=== PATIENT | female | born 1975 | race African-American/Black ===

== ENCOUNTER 2017-01-04 01:08 | Inpatient (IN) | payer MEDICAID ==
[2017-01-04] MEDS ORDERED: ASPIRIN 81 MG TABLET, CHEWABLE PO ONE (01:23)
[2017-01-04 01:50] LABS: ABSOLUTE BASOPHILS # (AUTO) 0.2 10^3/uL (0.0-0.2); ABSOLUTE EOSINOPHILS # (AUTO) 0.1 10^3/uL (0.0-0.6); ABSOLUTE LYMPHOCYTES (AUTO) 1.3 10^3/uL (0.5-4.7); ABSOLUTE MONOCYTES (AUTO) 1.3 10^3/uL (0.1-1.4); BASOPHILS % (AUTO) 1.3 % (0-2); EOSINOPHILS % (AUTO) 1.1 % (0-6); HEMATOCRIT 36.8 % (36.0-47.0); HGB HCT DIFFERENCE -0.8; MEAN CORPUSCULAR HGB CONC 32.7 g/dL (32.0-36.0); MEAN CORPUSCULAR VOLUME 83 fl (80-97); MONOCYTES % (AUTO) 9.9 % (3-13); RED BLOOD COUNT 4.46 10^6/uL (3.72-5.28); RED CELL DISTRIBUTION WIDTH 15.2 % (11.5-14.0); SEGMENTED NEUTROPHILS % (AUTO) 77.7 % (42-78); WHITE BLOOD COUNT 12.8 10^3/uL (4.0-10.5)
[2017-01-04] MEDS ORDERED: LABETALOL HCL INJ 20 MG/4 ML DISP.SYRIN IV ONE (01:53)
--- NOTE | 2017-01-04 02:01 | ER Document Report ---
ED General - General Stated Complaint: CHEST PAIN Notes: Patient is a 41-year-old female who presents with complaint of some burning pain in her chest, fast heart rate, and high blood pressure. She is visiting from [place]. She is visiting her mother. Patient is deaf. The mother does do sign language and we are able to commute to through the mother via sign language. The patient was admitted to the [place] in [facility] one week ago. That time she had some weakness in her left arm. Her blood pressures extremely high. She was eventually discharged on blood pressure medication. She is discharged on Diovan. She was also discharged glipizide for diabetes and a statin medication. Mother says that ever since leaving the hospital her blood pressure continues to run high. Patient says whenever blood pressure gets high she gets a burning type sensation in her chest. She has no difficulty breathing. No abdominal pain. No fevers. No vomiting. No diarrhea. No focal weakness or numbness. She says blood pressure has not been under control since leaving the [place]. patient's mother is on blood thinning medications because of a history of clots for herself. She thought maybe the patient's blood pressure ran high because her blood was too thick. Patient has no history of clots whatsoever. Mother decided to check the patient's INR with a home INR check. Patient sign of 0.9. The mother felt that this was too low of an INR and therefore she gave the patient 8 mg of warfarin yesterday. I quickly informed the mother to never do this again as this could lead to life- threatening bleeding potentially cause . Past Medical History - Social History Smoking Status: Never Smoker Frequency of alcohol use: None Drug Abuse: None Family History: Reviewed & Not Pertinent Review of Systems - Review of Systems Notes: My Normal Review Basic REVIEW OF SYSTEMS: CONSTITUTIONAL : Denies fever, chills, or sweats. Denies recent illness. EENT: Denies eye, ear, throat, or mouth pain or symptoms. Denies nasal or sinus congestion. CARDIOVASCULAR: Burning type sensation in chest. RESPIRATORY: Denies cough, cold, or chest congestion. Denies shortness of breath, difficulty breathing, or wheezing. GASTROINTESTINAL: Denies abdominal pain. Denies nausea, vomiting, or diarrhea. Denies constipation. Last BM: MUSCULOSKELETAL: Denies neck or back pain or joint pain or swelling. SKIN: Denies rash or skin lesions. HEMATOLOGIC : Family history of clotting disorder. NEUROLOGICAL: Denies altered mental status or loss of consciousness. Denies headache. Denies weakness or paralysis or loss of use of either side. Denies problems with gait or speech. Denies sensory or motor loss.ssion. ALL OTHER SYSTEMS REVIEWED AND NEGATIVE. Physical Exam - Vital signs Vitals: Resp BP 26 H 195/110 H 01/04/17 01:30 01/04/17 01:30 - Notes Notes: General Appearance: Well nourished, alert, cooperative, no acute distress, no obvious discomfort. Well-appearing. Vitals: reviewed, See vital signs table. Head: no swelling or tenderness to the head Eyes: PERRL, EOMI, Conjuctiva clear Mouth: No decreasd moisture Throat: No tonsillar inflammation, No airway obstruction, No lymphadenopathy Neck: Supple, no neck tenderness, No thyromegaly Lungs: No wheezing, No rales, No rhonci, No accessory muscle use, good air exchange bilaterally. Heart: Tachycardic rate, Regular rythm, No murmur, no rub Abdomen: Normal BS, soft, No rigidity, No abdominal tenderness, No guarding, no rebound, no abdominal masses, no organomegaly Extremities: strength 5/5 in all extremities, good pulses in all extremities, no swelling or tenderness in the extremities, no edema. Skin: warm, dry, appropriate color, no rash Neuro: Does not talk, oriented x 3, normal affect, responds appropriately to questions. Cranial nerves II through XII are intact. Distal sensation intact. Patient moves all extremities without difficulty. Course - Vital Signs Vital signs: Temp Pulse Resp BP Pulse Ox 22 H 146/84 H 99 01/04/17 05:01 01/04/17 05:01 01/04/17 05:01 - Laboratory Result Diagrams: 01/04/17 01:35 01/04/17 01:35 Laboratory results interpreted by me: 01/04/17 01/04/17 01:35 01:35 WBC 12.8 H RDW 15.2 H Lymphocytes % 10.0 L Absolute Neutrophils 10.0 H Sodium 135.5 L Potassium 3.5 L BUN 39 H Creatinine 3.98 H Est GFR ( Amer) 15 L Est GFR (Non-Af Amer) 13 L Glucose 47 L Calcium 12.7 H* Creatine Kinase 168 H Total Protein 8.4 H - EKG Interpretation by Me Additional EKG results interpreted by me: 01/04/17 01:58 EKG is reviewed and interpreted by me. EKG shows sinus tachycardia with a rate of [address] segment elevation or depression. Patient does have some T- wave inversions in the lateral leads. OH interval, QRS duration, QTC intervals are within normal range. No old EKG available for comparison. Discharge - Discharge Clinical Impression: Hypertensive emergency, Hypercalcemia Acute renal failure Qualifiers: Acute renal failure type: unspecified Qualified Code(s): N17.9 - Acute kidney failure, unspecified Chest pain Qualifiers: Chest pain type: unspecified Qualified Code(s): R07.9 - Chest pain, unspecified Condition: Stable Disposition: ADMITTED INPATIENT Admitting Provider: Hospitalist
[2017-01-04 02:14] LABS: ALANINE AMINOTRANSFERASE 31 U/L (9-52); ALBUMIN 4.3 g/dL (3.5-5.0); ALKALINE PHOSPHATASE 44 U/L (38-126); ANION GAP 13 (5-19); ASPARTATE AMINO TRANSFERASE 29 U/L (14-36); BILIRUBIN,TOTAL 0.4 mg/dL (0.2-1.3); BLOOD UREA NITROGEN 39 mg/dL (7-20); CARBON DIOXIDE 23 mmol/L (22-30); CHLORIDE 100 mmol/L (98-107); CREATINE KINASE 168 U/L (30-135); CREATININE RESULT 3.98 mg/dL (0.52-1.25); GLUCOSE 47 mg/dL (75-110); POTASSIUM 3.5 mmol/L (3.6-5.0); SODIUM 135.5 mmol/L (137-145); TOTAL PROTEIN 8.4 g/dL (6.3-8.2)
[2017-01-04 02:26] LABS: CREATINE KINASE MB 2.44 ng/mL (<4.55)
[2017-01-04 02:28] LABS: CALCIUM 12.7 mg/dL (8.4-10.2)
[2017-01-04 02:29] LABS: TROPONIN I 0.06 ng/mL
[2017-01-04] MEDS ORDERED: NITROGLYCERIN 2% OINTMENT 1 GM PACKET TP ONE (02:33)
[2017-01-04 02:43] LABS: PROTHROMBIN TIME 14.9 SEC (11.4-15.4)
[2017-01-04 04:14] LABS: THYROID STIMULATING HORMONE 2.21 uIU/mL (0.47-4.68)
[2017-01-04] MEDS ORDERED: ACETAMINOPHEN 325 MG TABLET PO PRN (05:52)
[2017-01-04] MEDS ORDERED: ONDANSETRON HCL INJ/PF 4 MG/2 ML SDV IV PRN (05:52)
[2017-01-04] MEDS ORDERED: NORMAL SALINE 1000 ML 1,000 ML IV SCH (06:00)
[2017-01-04] MEDS ORDERED: LORAZEPAM INJ 2 MG/1 ML VIAL ONE (06:30)
[2017-01-04] MEDS ORDERED: LORAZEPAM INJ 2 MG/1 ML VIAL IV ONE ×2 (06:32→06:53)
[2017-01-04] MEDS ORDERED: DEXTROSE 50%-WATER 25 GM/50 ML DISP.SYRIN IV ONE (06:39)
[2017-01-04] MEDS ORDERED: DEXTROSE 50%-WATER 25 GM/50 ML DISP.SYRIN IV PRN ×2 (06:54)
[2017-01-04] MEDS ORDERED: DEXTROSE 40% GEL 15 GM TUBE PO PRN ×2 (06:54)
[2017-01-04] MEDS ORDERED: GLUCAGON,HUMAN RECOMB 1 MG INJ IM PRN (06:54)
[2017-01-04] MEDS ORDERED: INSULIN LISPRO 100 UNIT/ML 3 ML VIAL SUBCUT PRN (06:54)
[2017-01-04] MEDS: HEPARIN SOD (PORCINE) 5,000 UNIT/ML 1 ML SYRINGE SUBCUT SCH (07:32)
--- NOTE | 2017-01-04 07:40 | PDOC H&P ---
History of Present Illness Admission Date/PCP: 01/04/17 05:52 Patient complains of: Chest pain and headache History of Present Illness: JOHNNY ABERNATHY is a 41 year old female with a past Riley history of deafness, diabetes and hypertension. Patient's mother is at bedside able able to provide sign language interpretation with daughter's approval. Patient been her usual state of health until approximately 2 weeks ago was admitted to the [place] in [place] for hypertensive emergency and left-sided weakness she was subsequently improved to baseline and discharged on captopril and moved to [place] with her mother. Patient's blood pressure home was noted to be in the 200 range despite captopril and was given lisinopril by her mother resulting in a systolic pressure in the 180s however she developed headache and chest pain and brought to the emergency room for evaluation. She's found to be anxious and diaphoretic with a blood pressure of 195/110, blood sugar of 47, calcium of 12.7 , creatinine of 4 and BUN of 39. Patient is otherwise been compliant with outpatient medication regiment denying recreational drugs, [id number] medication use or previous episodes of hypoglycemia though I am unclear of her Accu-Chek frequency. She denies nausea, vomiting or changes in her urine. Aside from captopril the patient is unaware of her diabetic medication regiment. Past Medical History Cardiac Medical History: Reports: Hypertension Endocrine Medical History: Reports: Diabetes Mellitus Type 2 Social History Information Source: Patient, Parent Lives with: Family Smoking Status: Never Smoker Frequency of Alcohol Use: None Drugs: None - Advance Directive Resuscitation Status: Full Code Family History Family History: DM, Hyperlipidemia, Hypertension, Malignancy Parental Family History Reviewed: Yes Children Family History Reviewed: Yes Sibling(s) Family History Reviewed.: Yes Review of Systems Constitutional: PRESENT: as per HPI, anorexia, fatigue - Diaphoresis, other - Diaphoresis Eyes: ABSENT: visual disturbances Ears: ABSENT: hearing changes Cardiovascular: PRESENT: chest pain, palpitations. ABSENT: dyspnea on exertion , edema, orthropnea Respiratory: PRESENT: dyspnea. ABSENT: cough, hemoptysis, sputum Gastrointestinal: ABSENT: abdominal pain, constipation, diarrhea, hematemesis, hematochezia, nausea, vomiting Genitourinary: ABSENT: dysuria, hematuria Musculoskeletal: ABSENT: joint swelling Integumentary: ABSENT: rash, wounds Neurological: ABSENT: abnormal gait, abnormal speech, confusion, dizziness, focal weakness, syncope Psychiatric: ABSENT: anxiety, depression, homidical ideation, suicidal ideation Endocrine: PRESENT: menstrual abnormalities. ABSENT: cold intolerance, heat intolerance, polydipsia, polyuria Hematologic/Lymphatic: ABSENT: easy bleeding, easy bruising Physical Exam Vital Signs: Temp Pulse Resp BP Pulse Ox 22 H 146/84 H 99 01/04/17 05:01 01/04/17 05:01 01/04/17 05:01 General appearance: PRESENT: cooperative, obese, severe distress, other - Tremulous and diaphoretic Head exam: PRESENT: atraumatic, normocephalic Eye exam: PRESENT: conjunctiva pink, EOMI, PERRLA. ABSENT: scleral icterus Ear exam: PRESENT: normal external ear exam Mouth exam: PRESENT: moist, tongue midline Neck exam: ABSENT: carotid bruit, JVD, lymphadenopathy, thyromegaly Respiratory exam: PRESENT: clear to auscultation deepak. ABSENT: rales, rhonchi, wheezes Cardiovascular exam: PRESENT: gallop, RRR, +S1, +S2, tachycardia. ABSENT: diastolic murmur, irregular rhythm, rubs, systolic murmur Pulses: PRESENT: normal dorsalis pedis pul Vascular exam: PRESENT: normal capillary refill GI/Abdominal exam: PRESENT: normal bowel sounds, soft. ABSENT: distended, guarding, mass, organolmegaly, rebound, tenderness Rectal exam: PRESENT: deferred Extremities exam: PRESENT: full ROM. ABSENT: calf tenderness, clubbing, pedal edema Neurological exam: PRESENT: alert, awake, oriented to person, oriented to place , oriented to time, oriented to situation, CN II-XII grossly intact. ABSENT: motor sensory deficit Psychiatric exam: PRESENT: anxious Skin exam: PRESENT: dry, intact, warm. ABSENT: cyanosis, rash Results Impressions: Chest X-Ray 01/04/17 01:23 IMPRESSION: NO ACUTE RADIOGRAPHIC FINDING IN THE CHEST. Chest CT 01/04/17 02:39 IMPRESSION: Small pulmonary nodules measure up to 0.5 cm. 6-12 month surveillance recommended. Abdomen/Pelvis CT 01/04/17 02:40 IMPRESSION: Possible 5 cm cystic mass of the right ovary. Moderate retroperitoneal and mild -moderate in trip perineal lymphadenopathy. Neoplasm cannot be excluded. Recommend pelvic sonogram and baseline contrast CT of the chest, abdomen, and pelvis. Transvaginal US 01/04/17 04:24 IMPRESSION: 4 cm right ovarian cyst. No other significant pelvic abnormalities were identified. Other findings as noted above Assessment & Plan - Diagnosis (1) Hypoglycemia Is this a current diagnosis for this admission?: YesPlan: Hypoglycemic protocol, obtain medication reconciliation and A1c (2) Diabetes 1.5, managed as type 2 Is this a current diagnosis for this admission?: YesPlan: Insulin protocol, obtain an A1c and medication reconciliation and education (3) Acute renal failure Qualifiers: Acute renal failure type: unspecified Qualified Code(s): N17.9 - Acute kidney failure, unspecified Is this a current diagnosis for this admission?: YesPlan: Completely unclear with multiple plausible causes, workup ongoing, avoiding nephrotoxic meds and doses IV fluid challenge consider nephrology consultation (4) Chest pain Qualifiers: Chest pain type: unspecified Qualified Code(s): R07.9 - Chest pain, unspecified Is this a current diagnosis for this admission?: YesPlan: Possibly secondary to hypertensive emergency I'll obtain serial cardiac enzymes and consider stress testing (5) Hypercalcemia Is this a current diagnosis for this admission?: YesPlan: Reevaluate calcium, ionized calcium, PTH, IV fluid challenge, strong family history of multiple solid tumor malignancy (6) Hypertensive emergency Is this a current diagnosis for this admission?: YesPlan: Possibly secondary to hypo-glycemia, correcting hypoglycemia, when necessary hydralazine. - Time Time Spent: Greater than 70 Minutes
--- NOTE | 2017-01-04 07:58 | EKG REPORT ---
SEVERITY:- ABNORMAL ECG - SINUS TACHYCARDIA ABNORMAL T, CONSIDER ISCHEMIA, LATERAL LEADS : Confirmed by: Collette Lopez MD 04-Jan-2017 07:57:22
[2017-01-04 08:53] LABS: CREATINE KINASE MB 2.05 ng/mL (<4.55); TROPONIN I 0.061 ng/mL
[2017-01-04 10:42] LABS: BLOOD UREA NITROGEN 36 mg/dL (7-20); CREATININE RESULT 4.09 mg/dL (0.52-1.25); GLUCOSE 137 mg/dL (75-110)
[2017-01-04 10:43] LABS: ANION GAP 12 (5-19); CARBON DIOXIDE 25 mmol/L (22-30); CHLORIDE 100 mmol/L (98-107); POTASSIUM 3.4 mmol/L (3.6-5.0); SODIUM 137.2 mmol/L (137-145)
[2017-01-04 10:56] LABS: CALCIUM 12.2 mg/dL (8.4-10.2)
[2017-01-04] MEDS: DOCUSATE SODIUM 100 MG CAPSULE PO SCH ×2 (11:16→20:33)
[2017-01-04 12:36] LABS: CREATINE KINASE MB 1.46 ng/mL (<4.55); TROPONIN I 0.042 ng/mL
[2017-01-04] MEDS ORDERED: AMLODIPINE BESYLATE 10 MG TABLET PO ONE ×2 (16:00→20:30)
--- NOTE | 2017-01-04 17:06 | PDOC CONSULTATION ---
Consultation Consult Date: 01/04/17 Consult reason:: Acute versus chronic kidney injury. History of Present Illness Admission Date/PCP: 01/04/17 05:52 History of Present Illness: JOHNNY ABERNATHY is a 41 year old female with a past Riley history of Severe deafness, diabetes and hypertension. As I am seeing her now there is no one by her bedside in the ER. Therefore chart review was done and discussions were done with the help of a writing pad which was very sketchy. Patient been her usual state of health until approximately 2 weeks ago was admitted to the [place] in [place] for hypertensive emergency and left-sided weakness she was subsequently improved to baseline and discharged on captopril and moved to [place] with her mother. Patient's blood pressure home was noted to be in the 200 range despite captopril and was given lisinopril by her mother resulting in a systolic pressure in the 180s however she developed headache and chest pain and brought to the emergency room for evaluation. She' s found to be anxious and diaphoretic with a blood pressure of 195/110, blood sugar of 47, calcium of 12.7, creatinine of 4 and BUN of 39. Patient is otherwise been compliant with outpatient medication regiment denying recreational drugs, [id number] medication use or previous episodes of hypoglycemia though I am unclear of her Accu-Chek frequency. She denies nausea , vomiting or changes in her urine. Aside from captopril the patient is unaware of her diabetic medication regiment. Had a discussion later with the mother. She states that her daughter was born normal and was able to speak for the first 2 years and she will respond to all commands. Sometime during second to third year is when she developed the deafness. There is no history of any visual defects. She is unaware of any kidney issues as her daughter lives in [place] with her fikaylee. There is no family history of hematuria or chronic kidney disease other than her father was a diabetic who has got CKD. Past Medical History Cardiac Medical History: Reports: Hypertension-primary Endocrine Medical History: Reports: Diabetes Mellitus Type 2 Social History Lives with: Family Smoking Status: Never Smoker Frequency of Alcohol Use: None Drugs: None - Advance Directive Resuscitation Status: Full Code Family History Parental Family History Reviewed: Yes - Negative for CKD or visual defects or hematuria in the family. Father is a Children Family History Reviewed: Yes Sibling(s) Family History Reviewed.: Yes Medication/Allergy Home Medications: Amlodipine Besylate [Norvasc 10 mg Tablet] 10 mg PO DAILY 01/04/17 Glimepiride [Amaryl] 2 mg PO DAILY 01/04/17 Pravastatin Sodium [Pravachol] 40 mg PO DAILY 01/04/17 Valsartan/Hydrochlorothiazide [Diovan Hct 320-25 mg Tablet] 1 tab PO DAILY 01/04 Allergies/Adverse Reactions: No Known Allergies Allergy (Unverified 01/04/17 15:26) Review of Systems Review of Systems: Chart review was done Physical Exam Vital Signs: Temp Pulse Resp BP Pulse Ox 97.4 F 94 16 164/86 H 100 01/04/17 12:16 01/04/17 12:16 01/04/17 12:16 01/04/17 12:16 01/04/17 12:16 Intake & Output 01/03/17 01/04/17 01/05/17 06:59 06:59 06:59 Weight 93.1 kg General appearance: PRESENT: no acute distress Eye exam: PRESENT: conjunctiva pink, EOMI, PERRLA. ABSENT: conjunctival injection, nystagmus Ear exam: PRESENT: normal external ear exam Mouth exam: ABSENT: moist Neck exam: ABSENT: lymphadenopathy, meningismus, tenderness, thyromegaly, tracheal deviation Respiratory exam: PRESENT: clear to auscultation deepak. ABSENT: crackles, rhonchi Cardiovascular exam: PRESENT: +S1, +S2 GI/Abdominal exam: PRESENT: normal bowel sounds, soft. ABSENT: distended, firm , guarding, organomegaly, tenderness Extremities exam: ABSENT: pedal edema Neurological exam: PRESENT: alert, awake, oriented to person, oriented to place Psychiatric exam: PRESENT: flat affect Skin exam: PRESENT: dry. ABSENT: erythema, mottled, rash Results Laboratory Results: 01/04/17 09:51 01/04/17 01/04/17 01/04/17 07:43 09:51 09:51 Sodium 137.2 Potassium 3.4 L Chloride 100 Carbon Dioxide 25 Anion Gap 12 BUN 36 H Creatinine 4.09 H Est GFR ( Amer) 15 L Est GFR (Non-Af Amer) 12 L Glucose 137 H Calcium 12.2 H* Ionized Calcium Fawn 1.49 H TSH 1.90 01/04/17 01/04/17 01/04/17 07:43 07:43 11:36 Creatine Kinase 133 117 CK-MB (CK-2) 2.05 Troponin I 0.061 01/04/17 11:36 Creatine Kinase CK-MB (CK-2) 1.46 Troponin I 0.042 Impressions: Chest X-Ray 01/04/17 01:23 IMPRESSION: NO ACUTE RADIOGRAPHIC FINDING IN THE CHEST. Chest CT 01/04/17 02:39 IMPRESSION: Small pulmonary nodules measure up to 0.5 cm. 6-12 month surveillance recommended. Abdomen/Pelvis CT 01/04/17 02:40 IMPRESSION: Possible 5 cm cystic mass of the right ovary. Moderate retroperitoneal and mild -moderate in trip perineal lymphadenopathy. Neoplasm cannot be excluded. Recommend pelvic sonogram and baseline contrast CT of the chest, abdomen, and pelvis. Transvaginal US 01/04/17 04:24 IMPRESSION: 4 cm right ovarian cyst. No other significant pelvic abnormalities were identified. Other findings as noted above Assessment & Plan - Diagnosis (1) Acute renal failure Qualifiers: Acute renal failure type: unspecified Qualified Code(s): N17.9 - Acute kidney failure, unspecified Is this a current diagnosis for this admission?: YesPlan: Unsure if this is acute or if this is acute on chronic kidney disease. Discussed with Dr. Jaffe earlier about these issues and she is in the process of trying to get notes from the previous hospital and may be from her primary care. Meanwhile I was trying to get to a mother but was unable to connect. We will get baseline labs. Reviewed his abdominal CT scan which does not show any evidence as to hydronephrosis. Will do basic labs including urine analysis to see if there is in any proteinuria. See if this is and if there is any evidence to indicate hereditiary nephritis. In the meanwhile patient is clinically dehydrated . Agree with current fluid resuscitation. Hypercalcemia could also be either part of severe dehydration , but could be part of a broader differential which needs to be worked out. We will need to differentiate all of these in due process. (2) Diabetes 1.5, managed as type 2 Is this a current diagnosis for this admission?: Yes (3) Hypercalcemia Is this a current diagnosis for this admission?: YesPlan: Follow-up on basic labs ordered. See how she responds to fluids. (4) Hypertensive emergency Is this a current diagnosis for this admission?: YesPlan: Presently relatively stable. Continue to monitor. (5) Hypoglycemia Is this a current diagnosis for this admission?: YesPlan: Presently euglycemic. Monitor.
[2017-01-04 19:45] LABS: CREATINE KINASE MB 1.3 ng/mL (<4.55); TROPONIN I 0.038 ng/mL
[2017-01-04 21:36] LABS: APPEARANCE,URINE CLEAR; BILIRUBIN,URINE NEGATIVE (NEGATIVE); GLUCOSE, URINE 50 mg/dL (NEGATIVE); KETONES,URINE NEGATIVE (NEGATIVE); LEUKOCYTE ESTERASE,URINE NEGATIVE (NEGATIVE); NITRITE,URINE NEGATIVE (NEGATIVE); PROTEIN,URINE NEGATIVE (NEGATIVE); URINE SPECIFIC GRAVITY 1.004; UROBILINOGEN,URINE NEGATIVE mg/dL (<2.0)
[2017-01-05] MEDS: HEPARIN SOD (PORCINE) 5,000 UNIT/ML 1 ML SYRINGE SUBCUT SCH ×4 (00:27→21:30)
[2017-01-05] MEDS: HYDRALAZINE HCL INJ/PF 20 MG/1 ML SDV IV PRN (00:34)
[2017-01-05 05:07] LABS: ABSOLUTE EOSINOPHILS # (AUTO) 0.3 10^3/uL (0.0-0.6); ABSOLUTE LYMPHOCYTES (AUTO) 1.2 10^3/uL (0.5-4.7); ABSOLUTE NEUT (AUTO) 7.7 10^3/uL (1.7-8.2); BASOPHILS % (AUTO) 0.4 % (0-2); EOSINOPHILS % (AUTO) 2.6 % (0-6); HEMATOCRIT 34.2 % (36.0-47.0); HEMOGLOBIN 11.3 g/dL (12.0-15.5); HGB HCT DIFFERENCE -0.3; LYMPHOCYTES % (AUTO) 12.2 % (13-45); MEAN CORPUSCULAR HEMOGLOBIN 27.5 pg (27.0-33.4); MEAN CORPUSCULAR VOLUME 83 fl (80-97); RED BLOOD COUNT 4.11 10^6/uL (3.72-5.28); SEGMENTED NEUTROPHILS % (AUTO) 74.8 % (42-78); WHITE BLOOD COUNT 10.2 10^3/uL (4.0-10.5)
[2017-01-05] MEDS: NORMAL SALINE 1000 ML 1,000 ML IV PRN ×2 (07:38→22:47)
[2017-01-05 08:00] LABS: ALANINE AMINOTRANSFERASE 30 U/L (9-52); ALBUMIN 3.9 g/dL (3.5-5.0); ALKALINE PHOSPHATASE 42 U/L (38-126); ANION GAP 12 (5-19); ASPARTATE AMINO TRANSFERASE 19 U/L (14-36); BILIRUBIN,TOTAL 0.3 mg/dL (0.2-1.3); BLOOD UREA NITROGEN 34 mg/dL (7-20); CARBON DIOXIDE 25 mmol/L (22-30); CHLORIDE 105 mmol/L (98-107); CREATININE RESULT 4.03 mg/dL (0.52-1.25); GLUCOSE 82 mg/dL (75-110); POTASSIUM 3.6 mmol/L (3.6-5.0); SODIUM 142.2 mmol/L (137-145)
[2017-01-05 08:07] LABS: CALCIUM 12.5 mg/dL (8.4-10.2)
[2017-01-05] MEDS ORDERED: CLONIDINE 0.1 MG/24 HR PATCH.TDWK TD SCH (10:00)
[2017-01-05] MEDS: AMLODIPINE BESYLATE 10 MG TABLET PO SCH (10:57)
[2017-01-05] MEDS: DOCUSATE SODIUM 100 MG CAPSULE PO SCH ×2 (10:57→17:31)
[2017-01-05 11:39] LABS: ANION GAP 9 (5-19); BLOOD UREA NITROGEN 31 mg/dL (7-20); CALCIUM 11.8 mg/dL (8.4-10.2); CARBON DIOXIDE 25 mmol/L (22-30); CHLORIDE 107 mmol/L (98-107); CREATININE RESULT 3.78 mg/dL (0.52-1.25); GLUCOSE 115 mg/dL (75-110); POTASSIUM 3.8 mmol/L (3.6-5.0); SODIUM 140.6 mmol/L (137-145)
--- NOTE | 2017-01-05 15:04 | PDOC PROGRESS REPORT ---
Subjective Progress Note for:: 01/05/17 Subjective:: Patient denies chest pain, shortness of breath, abdominal pain, nausea, vomiting , fevers, chills, diarrhea, constipation, headache, new onset weakness. Physical Exam Vital Signs: Temp Pulse Resp BP Pulse Ox 97.6 F 99 20 160/88 H 100 01/05/17 12:58 01/05/17 14:00 01/05/17 12:58 01/05/17 12:58 01/05/17 12:58 Intake & Output 01/04/17 01/05/17 01/06/17 06:59 06:59 06:59 Intake Total 430 Balance 430 Weight 89.1 kg 90.2 kg Exam: General: Awake alert and oriented x3, no acute respiratory distress HEENT: AT/NC, PERRL, EOMI, oropharynx is moist, pink, no scleral icterus, no conjunctival injection Neck: No JVD, trachea midline Chest: Clear to auscultation bilaterally, no wheezes rhonchi or rales CV: Regular rate and rhythm, normal S1 and S2, no murmur, rub, or gallop Abdomen: Soft, nontender to palpation, nondistended, active bowel sounds; no rebound, rigidity, or guarding Extremities: No cyanosis, clubbing or edema Neuro: Cranial nerves II through XII are grossly intact patient is deaf; awake alert and oriented x3 Psych: Normal mood and affect Results Laboratory Results: 01/05/17 04:02 01/05/17 10:41 01/04/17 01/05/17 01/05/17 11:10 04:02 04:02 WBC 10.2 RBC 4.11 Hgb 11.3 L Hct 34.2 L MCV 83 MCH 27.5 MCHC 33.0 RDW 15.0 H Plt Count 316 Seg Neutrophils % 74.8 Lymphocytes % 12.2 L Monocytes % 10.0 Eosinophils % 2.6 Basophils % 0.4 Absolute Neutrophils 7.7 Absolute Lymphocytes 1.2 Absolute Monocytes 1.0 Absolute Eosinophils 0.3 Absolute Basophils 0.0 Sodium Potassium Chloride Carbon Dioxide Anion Gap BUN Creatinine Est GFR ( Amer) Est GFR (Non-Af Amer) Glucose Calcium Ionized Calcium Fawn Phosphorus 4.2 Total Bilirubin AST ALT Alkaline Phosphatase Total Protein Albumin Urine Color COLORLESS Urine Appearance CLEAR Urine pH 6.0 Ur Specific [place] 1.004 Urine Protein NEGATIVE Urine Glucose (UA) 50 H Urine Ketones NEGATIVE Urine Blood SMALL H Urine Nitrite NEGATIVE Ur Leukocyte Esterase NEGATIVE Urine WBC (Auto) 0 Urine RBC (Auto) 0 01/05/17 01/05/17 01/05/17 04:02 07:46 10:41 WBC RBC Hgb Hct MCV MCH MCHC RDW Plt Count Seg Neutrophils % Lymphocytes % Monocytes % Eosinophils % Basophils % Absolute Neutrophils Absolute Lymphocytes Absolute Monocytes Absolute Eosinophils Absolute Basophils Sodium 142.2 140.6 Potassium 3.6 3.8 Chloride 105 107 Carbon Dioxide 25 25 Anion Gap 12 9 BUN 34 H 31 H Creatinine 4.03 H 3.78 H Est GFR ( Amer) 15 L 16 L Est GFR (Non-Af Amer) 12 L 13 L Glucose 82 115 H Calcium 12.5 H* 11.8 H Ionized Calcium Fawn 1.43 H Phosphorus Total Bilirubin 0.3 AST 19 ALT 30 Alkaline Phosphatase 42 Total Protein 8.0 Albumin 3.9 Urine Color Urine Appearance Urine pH Ur Specific Deming Urine Protein Urine Glucose (UA) Urine Ketones Urine Blood Urine Nitrite Ur Leukocyte Esterase Urine WBC (Auto) Urine RBC (Auto) 01/04/17 01/04/17 01/04/17 07:43 07:43 11:36 Creatine Kinase 133 117 CK-MB (CK-2) 2.05 Troponin I 0.061 01/04/17 01/04/17 01/04/17 11:36 18:48 18:48 Creatine Kinase 90 CK-MB (CK-2) 1.46 1.30 Troponin I 0.042 0.038 Impressions: Chest X-Ray 01/04/17 01:23 IMPRESSION: NO ACUTE RADIOGRAPHIC FINDING IN THE CHEST. Chest CT 01/04/17 02:39 IMPRESSION: Small pulmonary nodules measure up to 0.5 cm. 6-12 month surveillance recommended. Abdomen/Pelvis CT 01/04/17 02:40 IMPRESSION: Possible 5 cm cystic mass of the right ovary. Moderate retroperitoneal and mild -moderate in trip perineal lymphadenopathy. Neoplasm cannot be excluded. Recommend pelvic sonogram and baseline contrast CT of the chest, abdomen, and pelvis. Transvaginal US 01/04/17 04:24 IMPRESSION: 4 cm right ovarian cyst. No other significant pelvic abnormalities were identified. Other findings as noted above Assessment & Plan - Diagnosis (1) Hypertensive emergency Is this a current diagnosis for this admission?: YesPlan: Patient continues to require IV hydralazine. Will place her oral hydralazine as well as clonidine patch today. Patient's blood pressure currently 20% below admission. Have sent urine metanephrines. (2) Acute renal failure Qualifiers: Acute renal failure type: unspecified Qualified Code(s): N17.9 - Acute kidney failure, unspecified Is this a current diagnosis for this admission?: YesPlan: This appears to be likely acute on chronic renal failure. Still pending outside records. Appreciate nephrology input. Renal artery Doppler was negative. Kidneys grossly normal. Continue IV hydration. (3) Diabetes 1.5, managed as type 2 Is this a current diagnosis for this admission?: YesPlan: Patient's hemoglobin A1c is 5.8 Currently well-controlled on diet. Continue to hold glimepiride. (4) Hypercalcemia Is this a current diagnosis for this admission?: YesPlan: Patient's calcium slowly trending down is now 11.8. Continue IV hydration. Patient is pending immunofixation, serum and urine protein electrophoresis, 125 hydroxy vitamin D, and lymphoma leukemia panel. Concern at this time for leukemia/lymphoma patient does report night sweats and a small amount of weight loss. CT scans done reveal retroperitoneal adenopathy as well as some slight mediastinal adenopathy. (5) Deaf Qualifiers: Laterality: bilateral Qualified Code(s): H91.93 - Unspecified hearing loss, bilateral Is this a current diagnosis for this admission?: YesPlan: Supportive care. Happened after a fever in childhood. - Time Time Spent with patient: 25-34 minutes Medications reviewed and adjusted accordingly: Yes Anticipated discharge: Home
[2017-01-05] MEDS ORDERED: HYDRALAZINE HCL 50 MG TABLET PO ONE (15:30)
[2017-01-05 21:22] LABS: ANION GAP 10 (5-19); BLOOD UREA NITROGEN 30 mg/dL (7-20); CALCIUM 10.8 mg/dL (8.4-10.2); CARBON DIOXIDE 23 mmol/L (22-30); CHLORIDE 106 mmol/L (98-107); CREATININE RESULT 3.44 mg/dL (0.52-1.25); GLUCOSE 135 mg/dL (75-110); POTASSIUM 3.5 mmol/L (3.6-5.0); SODIUM 138.8 mmol/L (137-145)
[2017-01-05] MEDS: HYDRALAZINE HCL 50 MG TABLET PO SCH (21:30)
[2017-01-06] MEDS: HYDRALAZINE HCL INJ/PF 20 MG/1 ML SDV IV PRN (00:46)
[2017-01-06] MEDS: NORMAL SALINE 1000 ML 1,000 ML IV PRN (05:50)
[2017-01-06] MEDS: HYDRALAZINE HCL 50 MG TABLET PO SCH ×3 (05:50→21:34)
[2017-01-06] MEDS: HEPARIN SOD (PORCINE) 5,000 UNIT/ML 1 ML SYRINGE SUBCUT SCH ×3 (05:50→21:34)
[2017-01-06] MEDS: DOCUSATE SODIUM 100 MG CAPSULE PO SCH ×2 (09:22→17:24)
[2017-01-06] MEDS: AMLODIPINE BESYLATE 10 MG TABLET PO SCH (09:22)
[2017-01-06 10:46] LABS: ANION GAP 13 (5-19); BLOOD UREA NITROGEN 28 mg/dL (7-20); CALCIUM 10.3 mg/dL (8.4-10.2); CARBON DIOXIDE 20 mmol/L (22-30); CHLORIDE 109 mmol/L (98-107); CREATININE RESULT 3.42 mg/dL (0.52-1.25); GLUCOSE 134 mg/dL (75-110); POTASSIUM 3.9 mmol/L (3.6-5.0); SODIUM 142.1 mmol/L (137-145)
[2017-01-06 11:06] LABS: VITAMIN D 1,25 DIHYDROXY 79.1 pg/mL (19.9-79.3)
[2017-01-06 13:53] LABS: PROTEIN TOTAL UR 24HR 1030.4 mg/24 hr (30.0-150.0)
--- NOTE | 2017-01-06 16:42 | PDOC PROGRESS REPORT ---
Subjective Progress Note for:: 01/06/17 Subjective:: Patient was seen in the hospital today. This time her mother is by her bedside. Patient is definitely feeling a whole lot better according to both patient and the mother who was able to interpret her by sign language. She has had a 24 urine collection done and the Mack catheter has been withdrawn. Patient denies any history of chest pain shortness of breath nausea nausea vomiting. She is she has been eating well. Labs were reviewed with the patient and her mother. Calcium is almost normalized at 10.3. Unfortunately baseline labs from her physician in [place] has not been obtained. Discussed this with her mother who is going to call her her daughter's brynn's mother and tried to get those records records transferred. According to the mother there is no family history of any hematuria or deafness and any other family members. Her father was a diabetic with early CKD. Physical Exam Vital Signs: Temp Pulse Resp BP Pulse Ox 98.1 F 81 20 134/74 H 100 01/06/17 12:15 01/06/17 14:00 01/06/17 12:15 01/06/17 12:15 01/06/17 12:15 Intake & Output 01/05/17 01/06/17 01/07/17 06:59 06:59 06:59 Intake Total 430 5445 Output Total 300 Balance 430 5145 Weight 90.2 kg 92 kg General appearance: PRESENT: no acute distress Respiratory exam: PRESENT: clear to auscultation deepak. ABSENT: crackles, rhonchi Cardiovascular exam: PRESENT: +S1, +S2 GI/Abdominal exam: PRESENT: normal bowel sounds, soft. ABSENT: distended, firm , guarding, organomegaly, tenderness Extremities exam: ABSENT: pedal edema Neurological exam: PRESENT: alert, awake, oriented to person, oriented to place , oriented to time Results Laboratory Results: 01/05/17 04:02 01/06/17 10:08 01/05/17 01/05/17 01/06/17 08:00 20:40 10:08 Sodium 138.8 142.1 Potassium 3.5 L 3.9 Chloride 106 109 H Carbon Dioxide 23 20 L Anion Gap 10 13 BUN 30 H 28 H Creatinine 3.44 H 3.42 H Est GFR ( Amer) 18 L 18 L Est GFR (Non-Af Amer) 15 L 15 L Glucose 135 H 134 H Calcium 10.8 H 10.3 H Ur Total Protein 24 Hr 1030.4 H 01/04/17 01/04/17 01/04/17 07:43 07:43 11:36 Creatine Kinase 133 117 CK-MB (CK-2) 2.05 Troponin I 0.061 01/04/17 01/04/17 01/04/17 11:36 18:48 18:48 Creatine Kinase 90 CK-MB (CK-2) 1.46 1.30 Troponin I 0.042 0.038 Impressions: Chest X-Ray 01/04/17 01:23 IMPRESSION: NO ACUTE RADIOGRAPHIC FINDING IN THE CHEST. Chest CT 01/04/17 02:39 IMPRESSION: Small pulmonary nodules measure up to 0.5 cm. 6-12 month surveillance recommended. Abdomen/Pelvis CT 01/04/17 02:40 IMPRESSION: Possible 5 cm cystic mass of the right ovary. Moderate retroperitoneal and mild -moderate in trip perineal lymphadenopathy. Neoplasm cannot be excluded. Recommend pelvic sonogram and baseline contrast CT of the chest, abdomen, and pelvis. Transvaginal US 01/04/17 04:24 IMPRESSION: 4 cm right ovarian cyst. No other significant pelvic abnormalities were identified. Other findings as noted above Assessment & Plan - Diagnosis (1) Acute renal failure Qualifiers: Acute renal failure type: unspecified Qualified Code(s): N17.9 - Acute kidney failure, unspecified Is this a current diagnosis for this admission?: YesPlan: Patient on IV normal saline. No changes in her renal function numbers.Unsure if this is acute or if this is acute on chronic kidney disease. Awaiting baseline labs from her primary care physician in [place]. (2) Diabetes 1.5, managed as type 2 Is this a current diagnosis for this admission?: Yes (3) Hypercalcemia Is this a current diagnosis for this admission?: YesPlan: Almost near normal with just hydration. She has got low vitamin D2 with an upper normal of vitamin D3 and slightly lowish PTH. (4) Hypertensive emergency Is this a current diagnosis for this admission?: YesPlan: Blood pressure is is much under better control and continue present lines of management (5) Hypoglycemia Is this a current diagnosis for this admission?: Yes
--- NOTE | 2017-01-06 17:08 | PDOC PROGRESS REPORT ---
Subjective Progress Note for:: 01/06/17 Subjective:: Patient denies chest pain, shortness of breath, abdominal pain, nausea, vomiting , fevers, chills, diarrhea, constipation, headache, new onset weakness. Physical Exam Vital Signs: Temp Pulse Resp BP Pulse Ox 98.1 F 98 17 161/96 H 100 01/06/17 03:57 01/06/17 03:57 01/06/17 03:57 01/06/17 03:57 01/06/17 03:57 Intake & Output 01/05/17 01/06/17 01/07/17 06:59 06:59 06:59 Intake Total 430 5445 Output Total 300 Balance 430 5145 Weight 90.2 kg 92 kg Exam: General: Awake alert and oriented x3, no acute respiratory distress HEENT: AT/NC, PERRL, EOMI, oropharynx is moist, pink, no scleral icterus, no conjunctival injection Neck: No JVD, trachea midline Chest: Clear to auscultation bilaterally, no wheezes rhonchi or rales CV: Regular rate and rhythm, normal S1 and S2, no murmur, rub, or gallop Abdomen: Soft, nontender to palpation, nondistended, active bowel sounds; no rebound, rigidity, or guarding Extremities: No cyanosis, clubbing or edema Neuro: Cranial nerves II through XII are grossly intact patient is deaf; awake alert and oriented x3 Psych: Normal mood and affect Results Laboratory Results: 01/05/17 04:02 01/05/17 20:40 01/05/17 01/05/17 01/05/17 04:02 07:46 10:41 Sodium 142.2 140.6 Potassium 3.6 3.8 Chloride 105 107 Carbon Dioxide 25 25 Anion Gap 12 9 BUN 34 H 31 H Creatinine 4.03 H 3.78 H Est GFR ( Amer) 15 L 16 L Est GFR (Non-Af Amer) 12 L 13 L Glucose 82 115 H Calcium 12.5 H* 11.8 H Ionized Calcium Fawn 1.43 H Total Bilirubin 0.3 AST 19 ALT 30 Alkaline Phosphatase 42 Total Protein 8.0 Albumin 3.9 01/05/17 20:40 Sodium 138.8 Potassium 3.5 L Chloride 106 Carbon Dioxide 23 Anion Gap 10 BUN 30 H Creatinine 3.44 H Est GFR ( Amer) 18 L Est GFR (Non-Af Amer) 15 L Glucose 135 H Calcium 10.8 H Ionized Calcium Fawn Total Bilirubin AST ALT Alkaline Phosphatase Total Protein Albumin 01/04/17 01/04/17 01/04/17 07:43 07:43 11:36 Creatine Kinase 133 117 CK-MB (CK-2) 2.05 Troponin I 0.061 01/04/17 01/04/17 01/04/17 11:36 18:48 18:48 Creatine Kinase 90 CK-MB (CK-2) 1.46 1.30 Troponin I 0.042 0.038 Impressions: Chest X-Ray 01/04/17 01:23 IMPRESSION: NO ACUTE RADIOGRAPHIC FINDING IN THE CHEST. Chest CT 01/04/17 02:39 IMPRESSION: Small pulmonary nodules measure up to 0.5 cm. 6-12 month surveillance recommended. Abdomen/Pelvis CT 01/04/17 02:40 IMPRESSION: Possible 5 cm cystic mass of the right ovary. Moderate retroperitoneal and mild -moderate in trip perineal lymphadenopathy. Neoplasm cannot be excluded. Recommend pelvic sonogram and baseline contrast CT of the chest, abdomen, and pelvis. Transvaginal US 01/04/17 04:24 IMPRESSION: 4 cm right ovarian cyst. No other significant pelvic abnormalities were identified. Other findings as noted above Assessment & Plan - Diagnosis (1) Hypertensive emergency Is this a current diagnosis for this admission?: YesPlan: Improved. Patient currently on clonidine patch, Norvasc, and hydralazine. (2) Acute renal failure Qualifiers: Acute renal failure type: unspecified Qualified Code(s): N17.9 - Acute kidney failure, unspecified Is this a current diagnosis for this admission?: YesPlan: This appears to be likely acute on chronic renal failure. Still pending outside records. Appreciate nephrology input. Renal artery Doppler was negative. Kidneys grossly normal. Continue IV hydration, but will decrease. Mack has been replaced (3) Diabetes 1.5, managed as type 2 Is this a current diagnosis for this admission?: YesPlan: Patient's hemoglobin A1c is 5.8 Currently well-controlled on diet. Continue to hold glimepiride. (4) Hypercalcemia Is this a current diagnosis for this admission?: YesPlan: Patient's calcium slowly trending down is now 10.3, uncorrected. Continue IV hydration. Patient is pending immunofixation, serum and urine protein electrophoresis, and lymphoma leukemia panel. Concern at this time for leukemia /lymphoma patient does report night sweats and a small amount of weight loss. CT scans done reveal retroperitoneal adenopathy as well as some slight mediastinal adenopathy. Patient has low vitamin D, (5) Deaf Qualifiers: Laterality: bilateral Qualified Code(s): H91.93 - Unspecified hearing loss, bilateral Is this a current diagnosis for this admission?: Yes - Time Time Spent with patient: 25-34 minutes Medications reviewed and adjusted accordingly: Yes
[2017-01-06 17:37] LABS: GAMMA GLOBULIN URINE 24HR 14.8 % (.); M-SPIKE URINE 24HR 66.8 mg/24 hr (Not Observed)
[2017-01-06 22:42] LABS: ANION GAP 9 (5-19); BLOOD UREA NITROGEN 28 mg/dL (7-20); CARBON DIOXIDE 24 mmol/L (22-30); CHLORIDE 108 mmol/L (98-107); CREATININE RESULT 3.44 mg/dL (0.52-1.25); GLUCOSE 123 mg/dL (75-110); POTASSIUM 4.3 mmol/L (3.6-5.0)
[2017-01-07] MEDS: HYDRALAZINE HCL INJ/PF 20 MG/1 ML SDV IV PRN (00:30)
[2017-01-07] MEDS: NORMAL SALINE 1000 ML 1,000 ML IV PRN ×2 (02:37→10:49)
[2017-01-07] MEDS: HYDRALAZINE HCL 50 MG TABLET PO SCH ×2 (06:03→15:12)
[2017-01-07] MEDS: HEPARIN SOD (PORCINE) 5,000 UNIT/ML 1 ML SYRINGE SUBCUT SCH ×2 (06:04→14:44)
[2017-01-07] MEDS: AMLODIPINE BESYLATE 10 MG TABLET PO SCH (09:47)
[2017-01-07] MEDS: DOCUSATE SODIUM 100 MG CAPSULE PO SCH (09:47)
[2017-01-07 10:18] LABS: ANION GAP 10 (5-19); BLOOD UREA NITROGEN 26 mg/dL (7-20); CALCIUM 10.8 mg/dL (8.4-10.2); CARBON DIOXIDE 21 mmol/L (22-30); CHLORIDE 108 mmol/L (98-107); CREATININE RESULT 3.34 mg/dL (0.52-1.25); GLUCOSE 164 mg/dL (75-110); POTASSIUM 3.8 mmol/L (3.6-5.0); SODIUM 139.3 mmol/L (137-145)
[2017-01-07 15:06] VITALS: BP 154/89
[2017-01-07] MEDS ORDERED: CLONIDINE 0.1 MG/24 HR PATCH.TDWK TD SCH (16:00)
--- NOTE | 2017-01-07 21:12 | PDOC DISCHARGE SUMMARY ---
General - Admit/Disc Date/PCP Admission Date/Primary Care Provider: 01/04/17 05:52 Discharge Date: 01/07/17 - Discharge Diagnosis (1) Hypertensive emergency Is this a current diagnosis for this admission?: Yes (2) Acute renal failure Is this a current diagnosis for this admission?: Yes (3) Diabetes 1.5, managed as type 2 Is this a current diagnosis for this admission?: Yes (4) Hypercalcemia Is this a current diagnosis for this admission?: Yes (5) Deaf Is this a current diagnosis for this admission?: Yes (6) CKD (chronic kidney disease) Is this a current diagnosis for this admission?: Yes (7) Observation for suspected cancer Is this a current diagnosis for this admission?: Yes (8) Diabetic nephropathy with proteinuria Is this a current diagnosis for this admission?: Yes - Additional Information Resuscitation Status: Full Code Discharge Diet: Cardiac, Diabetic Discharge Activity: Activity As Tolerated Home Medications: Amlodipine Besylate [Norvasc 10 mg Tablet] 10 mg PO DAILY 01/04/17 Clonidine [Catapres-Tts 1 (0.1 mg/24 Hr) Transderm Patch] 1 each TD Th@10 30 Days 01/07/17 Docusate Sodium [Colace 100 mg Capsule] 100 mg PO BID #60 capsule 01/07/17 Hydralazine HCl [Apresoline 50 mg Tablet] 50 mg PO Q8 #90 tablet 01/07/17 Hydralazine HCl [Apresoline 50 mg Tablet] 50 mg PO Q8H #12 tablet 01/07/17 History of Present Illness History of Present Illness: JOHNNY ABERNATHY is a 41 year old female with a past Riley history of deafness, diabetes and hypertension. Patient's mother is at bedside able able to provide sign language interpretation with daughter's approval. Patient been her usual state of health until approximately 2 weeks ago was admitted to the [facility] in [place] for hypertensive emergency and left-sided weakness she was subsequently improved to baseline and discharged on captopril and moved to [place] with her mother. Patient's blood pressure home was noted to be in the 200 range despite captopril and was given lisinopril by her mother resulting in a systolic pressure in the 180s however she developed headache and chest pain and brought to the emergency room for evaluation. She's found to be anxious and diaphoretic with a blood pressure of 195/110, blood sugar of 47, calcium of 12.7 , creatinine of 4 and BUN of 39. Patient is otherwise been compliant with outpatient medication regiment denying recreational drugs, [id number] medication use or previous episodes of hypoglycemia though I am unclear of her Accu-Chek frequency. She denies nausea, vomiting or changes in her urine. Aside from captopril the patient is unaware of her diabetic medication regiment. Hospital Course Hospital Course: Patient's blood pressure was brought down by approximately 20% in the first 24 hours. Patient was started on clonidine patch with good results as well as hydralazine and her Norvasc was continued. Patient's valsartan/ hydrochlorothiazide was stopped and patient was given hydration with some improvement of her creatinine from 4.09-3.34. Patient leveled off around 3.4 as her creatinine. Outside records were requested from her hospital in [place] , but these were not obtained despite multiple attempts at reaching out to them. Patient did report to me that she had been having a small amount of unintentional weight loss approximately 10 pounds, night sweats, but no abnormal bruising. Patient was found to be hypercalcemic which improved some with hydration. Patient was found to have a low PTH, normal MARK level, negative DEVYN. Patient was found to have a low vitamin D level and a borderline high 1,25 hydroxy vitamin D level. 24 urine protein was collected and patient was found to have more than a gram of protein in her urine. At the time of her discharge, patient was currently pending immunofixation, lymphoma/leukemia panel , parathyroid related hormone, serum and protein electrophoresis. Patient was also noted to have low lymphocytes on her manual differential. At this time, patient is stable for discharge, but it has been express to patient and her mother that patient is expected to follow-up with her primary care provider as well as a electro winning operator. And that I am still concerned at this time for underlying malignancy. Patient is discharged in stable condition Physical Exam Vital Signs: Temp Pulse Resp BP Pulse Ox 97.6 F 89 17 154/89 H 100 01/07/17 15:03 01/07/17 15:03 01/07/17 15:03 01/07/17 15:03 01/07/17 15:03 Intake & Output 01/06/17 01/07/17 01/08/17 06:59 06:59 06:59 Intake Total 5445 4645 Output Total 300 3900 Balance 5145 745 Weight 92 kg 93.3 kg Exam: General: Awake alert and oriented x3, no acute respiratory distress HEENT: AT/NC, PERRL, EOMI, oropharynx is moist, pink, no scleral icterus, no conjunctival injection Neck: No JVD, trachea midline Chest: Clear to auscultation bilaterally, no wheezes rhonchi or rales CV: Regular rate and rhythm, normal S1 and S2, no murmur, rub, or gallop Abdomen: Soft, nontender to palpation, nondistended, active bowel sounds; no rebound, rigidity, or guarding Extremities: No cyanosis, clubbing or edema Neuro: Cranial nerves II through XII are grossly intact patient is deaf; awake alert and oriented x3 Psych: Normal mood and affect Results Laboratory Results: 01/05/17 04:02 01/07/17 09:53 01/05/17 01/06/17 01/07/17 08:00 22:05 09:53 Sodium 141.0 139.3 Potassium 4.3 3.8 Chloride 108 H 108 H Carbon Dioxide 24 21 L Anion Gap 9 10 BUN 28 H 26 H Creatinine 3.44 H 3.34 H Est GFR ( Amer) 18 L 19 L Est GFR (Non-Af Amer) 15 L 15 L Glucose 123 H 164 H Calcium 11.0 H 10.8 H Ur Albumin 24 Hour 46.4 Ur Total Protein 24 Hr 928.0 H U PEP M-Iam % 24 Hr 7.2 H U PEP M-Iam 24 Hr 66.8 H 01/04/17 01/04/17 01/04/17 07:43 07:43 11:36 Creatine Kinase 133 117 CK-MB (CK-2) 2.05 Troponin I 0.061 01/04/17 01/04/17 01/04/17 11:36 18:48 18:48 Creatine Kinase 90 CK-MB (CK-2) 1.46 1.30 Troponin I 0.042 0.038 Impressions: Chest X-Ray 01/04/17 01:23 IMPRESSION: NO ACUTE RADIOGRAPHIC FINDING IN THE CHEST. Chest CT 01/04/17 02:39 IMPRESSION: Small pulmonary nodules measure up to 0.5 cm. 6-12 month surveillance recommended. Abdomen/Pelvis CT 01/04/17 02:40 IMPRESSION: Possible 5 cm cystic mass of the right ovary. Moderate retroperitoneal and mild -moderate in trip perineal lymphadenopathy. Neoplasm cannot be excluded. Recommend pelvic sonogram and baseline contrast CT of the chest, abdomen, and pelvis. Transvaginal US 01/04/17 04:24 IMPRESSION: 4 cm right ovarian cyst. No other significant pelvic abnormalities were identified. Other findings as noted above Qualifiers PATEINT BEING DISCHARGED WITH ANY OF THE FOLLOWING DIAGNOSIS?: No Plan Time Spent: Greater than 30 Minutes
[2017-01-09 16:38] LABS: ALBUMIN UR 48.5 % (.); GAMMA GLOBULIN URINE 14.8 % (.); M-SPIKE % UR Not Observed % (Not Observed)
[2017-01-10 14:40] LABS: ALBUMIN 3 3.3 g/dL (2.9-4.4); ALPHA-1-GLOBULIN 0.2 g/dL (0.0-0.4); ALPHA-2-GLOBULIN 3 0.8 g/dL (0.4-1.0); GLOBULIN TTL 3.7 g/dL (2.2-3.9); IMMUNOGLOBULIN A 211 mg/dL (87-352); IMMUNOGLOBULIN G 1570 mg/dL (700-1600); IMMUNOGLOBULIN M 112 mg/dL (26-217); MONOCLONAL-SPIKE Not Observed g/dL (Not Observed)
[2017-01-12 10:18] LABS: METANEPHRINE/CREAT RATIO URINE 0.4 (0.0-1.0)
== END 2017-01-07 16:00 | disposition home or self-care (01) | DRG 305 ==
LOC: ER 01:08 → EH 05:52 → 4N 01-05 00:22
PROVIDERS: ADMIT Internal Medicine; ATTEND Internal Medicine
DX: I16.1 Hypertensive emergency (principal); N17.9 Acute kidney failure, unspecified; I12.9 Hypertensive chronic kidney disease with stage 1 through stage 4 chronic kidney disease, or unspecified chronic kidney disease; E83.52 Hypercalcemia; E11.22 Type 2 diabetes mellitus with diabetic chronic kidney disease; N18.9 Chronic kidney disease, unspecified; E11.21 Type 2 diabetes mellitus with diabetic nephropathy; E20.9 Hypoparathyroidism, unspecified; E11.649 Type 2 diabetes mellitus with hypoglycemia without coma; H91.93 Unspecified hearing loss, bilateral; N83.201 Unspecified ovarian cyst, right side; R91.8 Other nonspecific abnormal finding of lung field; R53.1 Weakness; Z79.899 Other long term (current) drug therapy; Z83.3 Family history of diabetes mellitus; Z80.9 Family history of malignant neoplasm, unspecified; Z82.49 Family history of ischemic heart disease and other diseases of the circulatory system
CPT/HCPCS: 36415; 71010; 71250; 74176; 76830; 80048; 80053; 81001; 82164; 82306; 82330; 82397; 82550; 82553; 82570; 82652; 82962; 83036; 83735; 83835; 83970; 84100; 84156; 84166; 84439; 84443; 84484; 84703; 85025; 85610; 86038; 86320; 88184; 88185; 93005; 93010; 93975; 93976; 96374; 99285; J0360; J1644; J2060; J3490; J7030

== ENCOUNTER → 2019-07-02 | Emergency (ER) ==
[2019-07-02 18:29] VITALS: BP 150/76
--- NOTE | 2019-07-02 21:01 | EKG REPORT ---
SEVERITY:- ABNORMAL ECG - SINUS RHYTHM PROBABLE LEFT ATRIAL ABNORMALITY RIGHT BUNDLE BRANCH BLOCK : Confirmed by: Collette Lopez MD 02-Jul-2019 21:00:31
== END ==
LOC: ER 18:15
DX: Z53.21 Procedure and treatment not carried out due to patient leaving prior to being seen by health care provider (principal)
CPT/HCPCS: 93005; 93010

== ENCOUNTER 2019-12-31 15:57 | Emergency (ER) | payer MEDICAID ==
--- NOTE | 2019-12-31 17:16 | ER Document Report ---
ED Medical Screen (RME) - General Chief Complaint: Abnormal Lab Results Stated Complaint: ABNORMAL LAB WORK - DR REFERRED Time Seen by Provider: 12/31/19 17:14 Mode of Arrival: Ambulatory Information source: Patient Cannot obtain history due to: Other - Deaf Notes: 44-year-old female presented to ED for abnormal lab work. Mother is speaking for the patient as the patient is deaf. Mother states patient has been deaf since she was 4 years old. She was sent over here because primary care doctor said that she had abnormal labs and she needed to get into see the kidney doctor she missed her kidney doctor appointment and she needs to be followed up with a kidney specialist as soon as possible that a month was too late to wait for a kidney specialist appointment. Get blood and urine and get her seen by 1 of the ER providers. I have greeted and performed a rapid initial assessment of this patient. A comprehensive ED assessment and evaluation of the patient, analysis of test results and completion of medical decision making process will be conducted by an additional ED providers. TRAVEL OUTSIDE OF THE [place] IN LAST 30 DAYS: No - Related Data Allergies/Adverse Reactions: No Known Allergies Allergy (Verified 12/31/19 17:03) Past Medical History - Past Medical History Cardiac Medical History: Reports: Hx Hypertension Endocrine Medical History: Reports: Hx Diabetes Mellitus Type 2 Physical Exam - Vital signs Vitals: Temp Pulse Resp BP Pulse Ox 98.6 F 85 16 153/85 H 97 12/31/19 16:05 12/31/19 16:05 12/31/19 16:05 12/31/19 16:05 12/31/19 16:05 Course - Vital Signs Vital signs: Temp Pulse Resp BP Pulse Ox 98.6 F 85 16 153/85 H 97 12/31/19 16:05 12/31/19 16:05 12/31/19 16:05 12/31/19 16:05 12/31/19 16:05
--- NOTE | 2019-12-31 18:29 | ER Document Report ---
ED General - General Chief Complaint: Abnormal Lab Results Stated Complaint: ABNORMAL LAB WORK - DR REFERRED Time Seen by Provider: 12/31/19 17:14 Primary Care Provider: NORMA CASTILLO MD [ACTIVE STAFF] - Follow up as needed DEMAR LANE DO [Primary Care Provider] - Follow up as needed Mode of Arrival: Ambulatory Information source: Patient, Parent Notes: Patient is a 44-year-old female presenting to the emergency department chief complaint of abnormal labs. Patient states that she was seeing a provider to establish local care. Patient states that she has been out of the area for some time. Patient states that primary care provider instructed her to come to the emergency department for possible admission or at least a sooner appointment with nephrology because of elevated BUN and creatinine. When specifically asked the patient has no complaints no nausea vomiting diarrhea headache dizziness. She states she simply went to their office to establish care. All history and physical exam information is obtained from the patient but through her mother who is working as a sign builder supervisor. Patient has been deaf since 4 years old. TRAVEL OUTSIDE OF THE [place] IN LAST 30 DAYS: No - HPI Onset: Last week Onset/Duration: Persistent Quality of pain: No pain Severity: None Pain Level: Denies Associated symptoms: None Exacerbated by: Denies Relieved by: Denies Similar symptoms previously: Yes Recently seen / treated by doctor: Yes - Related Data Allergies/Adverse Reactions: No Known Allergies Allergy (Verified 12/31/19 17:03) Past Medical History - General Information source: Patient, Parent - Social History Smoking Status: Current Every Day Smoker Cigarette use (# per day): Yes Smoking Education Provided: Yes Frequency of alcohol use: None Drug Abuse: None Lives with: Alone Family History: DM, Hyperlipidemia, Hypertension, Malignancy Patient has suicidal ideation: No Patient has homicidal ideation: No - Past Medical History Cardiac Medical History: Reports: Hx Hypertension Endocrine Medical History: Reports: Hx Diabetes Mellitus Type 2 Renal/ Medical History: Reports: Hx Renal Insufficiency Review of Systems - Review of Systems Notes: REVIEW OF SYSTEMS: CONSTITUTIONAL : Denies fever, chills, or sweats. Denies recent illness. EENT: Denies eye, ear, throat, or mouth pain or symptoms. Denies nasal or sinus congestion. CARDIOVASCULAR: Denies chest pain. RESPIRATORY: Denies cough, cold, or chest congestion. Denies shortness of breath, difficulty breathing, or wheezing. GASTROINTESTINAL: Denies abdominal pain. Denies nausea, vomiting, or diarrhea. Denies constipation. GENITOURINARY: Denies difficulty urinating, painful urination, burning, frequency, or blood in urine. MUSCULOSKELETAL: Denies neck or back pain or joint pain or swelling. SKIN: Denies rash or skin lesions. HEMATOLOGIC : Denies easy bruising or bleeding. NEUROLOGICAL: Denies altered mental status or loss of consciousness. Denies headache. Denies weakness or paralysis or loss of use of either side. Denies problems with gait or speech. Denies sensory or motor loss. PSYCHIATRIC: Denies suicidal or homicidal ideations 10 Systems are negative unless otherwise specified above Constitutional: No symptoms reported EENT: No symptoms reported Cardiovascular: No symptoms reported Respiratory: No symptoms reported Gastrointestinal: No symptoms reported Genitourinary: No symptoms reported Female Genitourinary: No symptoms reported Musculoskeletal: No symptoms reported Skin: No symptoms reported Hematologic/Lymphatic: No symptoms reported Neurological/Psychological: No symptoms reported -: Yes All other systems reviewed and negative Physical Exam - Vital signs Vitals: Temp Pulse Resp BP Pulse Ox 98.6 F 85 16 153/85 H 97 12/31/19 16:05 12/31/19 16:05 12/31/19 16:05 12/31/19 16:05 12/31/19 16:05 - Notes Notes: PHYSICAL EXAMINATION: GENERAL: Well-appearing, well-nourished and in no acute distress. HEAD: Atraumatic, normocephalic. EYES: Pupils equal round and reactive to light, extraocular movements intact, sclera anicteric, conjunctiva are normal. ENT: nares patent, oropharynx clear without exudates. Moist mucous membranes. NECK: Normal range of motion, supple without lymphadenopathy, no appreciable JVD LUNGS: Lungs clear to auscultation bilaterally and equal. No wheezes rales or rhonchi. HEART: Regular rate and rhythm without murmurs ABDOMEN: Soft, nontender, normal bowel sounds. No guarding, no rebound. No masses appreciated. EXTREMITIES: Active full range of motion, no pitting or edema. No cyanosis. 2+ pulses x4 NEUROLOGICAL: No focal neurological deficits with the exception of deafness. Moves all extremities spontaneously and on command. SKIN: Warm, Dry, and intact. Normal turgor, no rashes or lesions noted. Course - Re-evaluation Re-evalutation: 12/31/19 22:34 I have reviewed the patient's laboratory findings discussed this with Dr. Castillo nephrology customer consultant she recommends no intervention required at this time and states that the patient should follow-up with nephrology as scheduled. Patient may end up calling the office in search of possible cancellations otherwise continue as is. Patient shows no signs of new neurologic deficit patient is in no acute distress and will be discharged home in stable condition. - Vital Signs Vital signs: Temp Pulse Resp BP Pulse Ox 98.7 F 80 16 150/80 H 98 12/31/19 21:30 12/31/19 21:30 12/31/19 21:30 12/31/19 21:30 12/31/19 21:30 - Laboratory Result Diagrams: 12/31/19 20:06 12/31/19 20:06 Laboratory results interpreted by me: 12/31/19 12/31/19 12/31/19 19:34 20:06 20:06 WBC 10.9 H Hct 35.8 L RDW 18.3 H BUN 39 H Creatinine 3.78 H Est GFR ( Amer) 16 L Est GFR (MDRD) Non-Af 13 L Urine Protein 100 H Urine Glucose (UA) 50 H Urine Ascorbic Acid 20 H Discharge - Discharge Clinical Impression: Deaf Qualifiers: Laterality: unspecified laterality Qualified Code(s): H91.90 - Unspecified hearing loss, unspecified ear CKD (chronic kidney disease) Qualifiers: Chronic kidney disease stage: unspecified stage Qualified Code(s): N18.9 - Chronic kidney disease, unspecified Condition: Stable Disposition: HOME, SELF-CARE Additional Instructions: Please follow-up with either the relationship banker you already have a signed or you may call the relationship banker provided. Return to the emergency department for worsening symptoms. Please continue to take medications as prescribed. Referrals: DEMAR LANE DO [Primary Care Provider] - Follow up as needed NORMA CASTILLO MD [ACTIVE STAFF] - Follow up as needed
[2019-12-31 19:52] LABS: APPEARANCE,URINE CLEAR; BILIRUBIN,URINE NEGATIVE (NEGATIVE); COLOR,URINE YELLOW; GLUCOSE, URINE 50 mg/dL (NEGATIVE); KETONES,URINE NEGATIVE (NEGATIVE); LEUKOCYTE ESTERASE,URINE NEGATIVE (NEGATIVE); NITRITE,URINE NEGATIVE (NEGATIVE); PROTEIN,URINE 100 mg/dL (NEGATIVE); URINE SPECIFIC GRAVITY 1.012; UROBILINOGEN,URINE NEGATIVE mg/dL (<2.0)
[2019-12-31 19:55] LABS: ADD MANUAL MICROSCOPIC YES; BACTERIA,URINE TRACE /HPF; WBC,URINE RARE /HPF
[2019-12-31 19:56] LABS: AMORPHOUS SEDIMENT,UR TRACE
[2019-12-31 20:21] LABS: ABSOLUTE BASOPHILS # (AUTO) 0.1 10^3/uL (0.0-0.2); ABSOLUTE EOSINOPHILS # (AUTO) 0.3 10^3/uL (0.0-0.6); ABSOLUTE LYMPHOCYTES (AUTO) 1.7 10^3/uL (0.5-4.7); ABSOLUTE MONOCYTES (AUTO) 0.9 10^3/uL (0.1-1.4); ABSOLUTE NEUT (AUTO) 7.9 10^3/uL (1.7-8.2); BASOPHILS % (AUTO) 0.7 % (0-2); EOSINOPHILS % (AUTO) 2.6 % (0-6); HEMATOCRIT 35.8 % (36.0-47.0); HEMOGLOBIN 12.1 g/dL (12.0-15.5); LYMPHOCYTES % (AUTO) 15.6 % (13-45); MEAN CORPUSCULAR HEMOGLOBIN 28.5 pg (27.0-33.4); MEAN CORPUSCULAR HGB CONC 33.8 g/dL (32.0-36.0); MEAN CORPUSCULAR VOLUME 84 fl (80-97); MONOCYTES % (AUTO) 8.3 % (3-13); PLATELET COUNT 267 10^3/uL (150-450); RED BLOOD COUNT 4.24 10^6/uL (3.72-5.28); RED CELL DISTRIBUTION WIDTH 18.3 % (11.5-14.0); SEGMENTED NEUTROPHILS % (AUTO) 72.8 % (42-78); TOTAL CELLS COUNTED % (AUTO) 100 %; WHITE BLOOD COUNT 10.9 10^3/uL (4.0-10.5)
[2019-12-31 20:36] LABS: ALBUMIN 3.6 g/dL (3.5-5.0); ALKALINE PHOSPHATASE 43 U/L (38-126); ANION GAP 9 (5-19); ASPARTATE AMINO TRANSFERASE 23 U/L (14-36); BILIRUBIN,DIRECT 0.3 mg/dL (0.0-0.4); BILIRUBIN,TOTAL 0.5 mg/dL (0.2-1.3); BLOOD UREA NITROGEN 39 mg/dL (7-20); CALCIUM 8.9 mg/dL (8.4-10.2); CARBON DIOXIDE 24 mmol/L (22-30); CHLORIDE 106 mmol/L (98-107); GLUCOSE 90 mg/dL (75-110); POTASSIUM 4.1 mmol/L (3.6-5.0); TOTAL PROTEIN 7.2 g/dL (6.3-8.2)
[2019-12-31 21:31] VITALS: BP 150/80
== END 2019-12-31 21:30 | disposition home or self-care (01) ==
LOC: ER 15:57
DX: I12.9 Hypertensive chronic kidney disease with stage 1 through stage 4 chronic kidney disease, or unspecified chronic kidney disease (principal); E11.22 Type 2 diabetes mellitus with diabetic chronic kidney disease; N18.9 Chronic kidney disease, unspecified; F17.210 Nicotine dependence, cigarettes, uncomplicated
CPT/HCPCS: 36415; 80053; 81001; 81025; 85025; 99283

== ENCOUNTER → 2020-02-28 | Outpatient (CLI) | payer MEDICAID ==
[2020-02-28 14:22] LABS: ABSOLUTE EOSINOPHILS # (AUTO) 0.1 10^3/uL (0.0-0.6); ABSOLUTE LYMPHOCYTES (AUTO) 0.7 10^3/uL (0.5-4.7); ABSOLUTE MONOCYTES (AUTO) 0.5 10^3/uL (0.1-1.4); ABSOLUTE NEUT (AUTO) 9.3 10^3/uL (1.7-8.2); BASOPHILS % (AUTO) 0.4 % (0-2); EOSINOPHILS % (AUTO) 0.8 % (0-6); HEMATOCRIT 34.8 % (36.0-47.0); HEMOGLOBIN 11.9 g/dL (12.0-15.5); LYMPHOCYTES % (AUTO) 6.2 % (13-45); MEAN CORPUSCULAR HEMOGLOBIN 29.1 pg (27.0-33.4); MEAN CORPUSCULAR HGB CONC 34.2 g/dL (32.0-36.0); MEAN CORPUSCULAR VOLUME 85 fl (80-97); PLATELET COUNT 260 10^3/uL (150-450); RED BLOOD COUNT 4.09 10^6/uL (3.72-5.28); RED CELL DISTRIBUTION WIDTH 16.2 % (11.5-14.0); SEGMENTED NEUTROPHILS % (AUTO) 87.6 % (42-78); TOTAL CELLS COUNTED % (AUTO) 100 %; WHITE BLOOD COUNT 10.6 10^3/uL (4.0-10.5)
[2020-02-28 14:36] LABS: APPEARANCE,URINE CLEAR; BILIRUBIN,URINE NEGATIVE (NEGATIVE); COLOR,URINE YELLOW; GLUCOSE, URINE 150 mg/dL (NEGATIVE); KETONES,URINE NEGATIVE (NEGATIVE); LEUKOCYTE ESTERASE,URINE NEGATIVE (NEGATIVE); NITRITE,URINE NEGATIVE (NEGATIVE); PROTEIN,URINE >=500 mg/dL (NEGATIVE); URINE SPECIFIC GRAVITY 1.012; UROBILINOGEN,URINE NEGATIVE mg/dL (<2.0)
[2020-02-28 14:49] LABS: ALBUMIN 3.5 g/dL (3.5-5.0); ALKALINE PHOSPHATASE 37 U/L (38-126); ANION GAP 9 (5-19); ASPARTATE AMINO TRANSFERASE 17 U/L (14-36); BILIRUBIN,TOTAL 0.3 mg/dL (0.2-1.3); BLOOD UREA NITROGEN 42 mg/dL (7-20); CALCIUM 9.1 mg/dL (8.4-10.2); CARBON DIOXIDE 23 mmol/L (22-30); CHLORIDE 102 mmol/L (98-107); GLUCOSE 235 mg/dL (75-110); PHOSPHORUS 4.1 mg/dL (2.5-4.5); POTASSIUM 4.6 mmol/L (3.6-5.0); TOTAL PROTEIN 6.6 g/dL (6.3-8.2)
[2020-02-29 12:36] LABS: CREATININE URINE 109.1 mg/dL (Not Estab.)
[2020-03-01 10:50] LABS: MICROALBUMIN URINE 1554.9 ug/mL (Not Estab.)
== END ==
LOC: OD 13:54
PROVIDERS: ATTEND Internal Medicine Nephrology
DX: I12.9 Hypertensive chronic kidney disease with stage 1 through stage 4 chronic kidney disease, or unspecified chronic kidney disease (principal); N18.4 Chronic kidney disease, stage 4 (severe); E11.22 Type 2 diabetes mellitus with diabetic chronic kidney disease
CPT/HCPCS: 36415; 80053; 81001; 82043; 82570; 83970; 84100; 85025